=== PATIENT | male | born 1950 | race Caucasian/White ===

== ENCOUNTER 2022-12-08 06:04 | Day surgery (SDC) | payer OTHER ==
[~2022-12-08] VITALS: Ht 168 cm; Wt 79.5 kg
[~2022-12-08 06:04] MED LIST: ACET500 PO; AREDS PO; DIPH50 PO; FAMO20 PO; FINA5 PO; ICAPS AREDS2 T1 EACH PO; TERA5 PO; VITAMIN D310 MC4 PO; ZYRTEC10 M2 PO
--- NOTE | 2022-12-08 07:05 | NUR ---
Ambulatory in Day Surgery History, Chart, Medications and Allergies reviewed before start of procedure.Patient confirms NPO status and agrees with scheduled surgery. Patient reports completing Chlorhexadine shower X2 prior to admission to hospital.Surgical site prepped with 2% Chlorhexidine cloth wipe. Patient States Post-Procedure ride home has been arranged WITH BROTHER
[2022-12-08 07:24] LABS: Bun/Creatinine Ratio 16.9 (12.0-20.0); Calcium, Blood 8.9 mg/dL (8.5-10.1); Creatinine, Blood 0.89 mg/dL (0.60-1.20); Potassium, Blood 3.8 mmol/L (3.5-5.5)
--- NOTE | 2022-12-08 10:08 | NUR ---
PT ARRIVED TO UNIT VIA GURN FROM PACU. RECEIVED REPORT FROM SIMONE VOGEL RN. PT REPORTS NO NAUSEA. VSS. WILL CONTINUE TO MONITOR.
--- NOTE | 2022-12-08 11:03 | NUR ---
Patient up to Ambulate independently. Gait steady. Discharge instructions reviewed with patient. Patient verbalizes understanding. Copy given to patient to take home. Dressing to procedure site clean, dry, intact with no visible drainage, swelling, erythema or bruising noted. Discharged via wheelchair to private car for ride home.
== END 2022-12-08 22:51 | disposition home or self-care (01) ==
LOC: ORSCMMR 06:04 → ORD 07:30 → ORSCMMR 22:51
PROVIDERS: Surgery
PROC: 0WQF0ZZ Repair Abdominal Wall, Open Approach (ICD-10-PCS; principal; 2022-12-08 07:30)
PROC: 0YU64JZ Supplement Left Inguinal Region with Synthetic Substitute, Percutaneous Endoscopic Approach (ICD-10-PCS; principal; 2022-12-08 07:30)
PROC: 3E0M45Z Introduction of Adhesion Barrier into Peritoneal Cavity, Percutaneous Endoscopic Approach (ICD-10-PCS; principal; 2022-12-08 07:30)
PROC: 8E0W4CZ Robotic Assisted Procedure of Trunk Region, Percutaneous Endoscopic Approach (ICD-10-PCS; principal; 2022-12-08 07:30)
DX: K40.90 Unilateral inguinal hernia, without obstruction or gangrene, not specified as recurrent (principal); K42.9 Umbilical hernia without obstruction or gangrene; I10 Essential (primary) hypertension; E78.00 Pure hypercholesterolemia, unspecified; Z79.899 Other long term (current) drug therapy
CPT/HCPCS: 49650; 49591; S2900; 80048; A9270; C1781; J1100; J1885; J2250; J2270; J2405; J2704; J3010; J7120

== ENCOUNTER 2023-08-26 06:26 | Day surgery (SDC) | payer OTHER ==
[~2023-08-26] VITALS: Ht 167.6 cm; Wt 82.9 kg
--- NOTE | 2023-08-26 10:31 | NUR ---
08/26/23 1031 Anisha Coe PT IS SITTING IN RECLINER AND IS EATING AND DRINKING. APPEARS TO BE MORE COMFORTABLE. PT'S FIANCE IN ROOM.
[2023-08-26 10:39] VITALS: BP 150/81
== END 2023-08-26 11:19 | disposition home or self-care (01) ==
LOC: ORSCSDS 06:26
PROVIDERS: Orthopaedic Surgery
PROC: 0RQS0ZZ Repair Right Carpometacarpal Joint, Open Approach (ICD-10-PCS; principal; 2023-08-26 08:00)
DX: M18.11 Unilateral primary osteoarthritis of first carpometacarpal joint, right hand (principal); N40.0 Benign prostatic hyperplasia without lower urinary tract symptoms; Z86.16 Personal history of COVID-19; I10 Essential (primary) hypertension; Z87.891 Personal history of nicotine dependence; Z79.899 Other long term (current) drug therapy
CPT/HCPCS: A9270; C1713; J0690; J2250; J2704; J3010